=== PATIENT | female | born 1995 | race Caucasian/White ===

== ENCOUNTER 2018-05-18 18:39 | Emergency (ER) | payer OTHER ==
[2018-05-18 19:38] VITALS: BP 147/93; PULSE 100; TEMP 98; BMI 31.0
--- NOTE | 2018-05-18 19:38 | PDOC ---
Rapid Medical Evaluation Chief Complaint: Back Pain Medical Evaluation: Allergies Allergy/AdvReac Type Severity Reaction Status Date / Time No Known Allergies Allergy Verified 08/12/12 23:10 05/18/18 19:36 I have performed a brief in-person evaluation of this patient. The patient presents with a chief complaint of: back x 6 days , no fevers, no dysuria or bowel issue- states is left sided with radiation. Pertinent physical exam findings: pale, walks slowly, unable to bend due to pain I have ordered the following: UCG The patient will proceed to the ED for further evaluation. 05/18/18 19:37 Discharge Disposition - Diagnosis Back pain - Referrals - Patient Instructions - Post Discharge Activity
[2018-05-18] MEDS ORDERED: KETOROLAC TROMETHAMINE 30 MG/1 ML VIAL IM ONE (20:58)
--- NOTE | 2018-05-18 20:58 | PDOC ---
History of Present Illness - General Chief Complaint: Pain, Acute Stated Complaint: LT LEG PAIN Time Seen by Provider: 05/18/18 20:16 History Source: Patient - History of Present Illness Initial Comments: 05/18/18 21:03 23 year old obese female complaining of left Sided back pain radiating down to the left leg. Denies numbness or tingling to the lower extremity. Denies midline tenderness or pain, denies heavy lifting, injury or trauma to the area. PMHX; NIDDM Extremity Pain Location - Extremity Pain Location Extremity Pain Locations: left: leg Past History - Past Medical History Allergies/Adverse Reactions: Allergies Allergy/AdvReac Type Severity Reaction Status Date / Time No Known Allergies Allergy Verified 05/18/18 19:58 Home Medications: Ambulatory Orders Cyclobenzaprine HCl [Flexeril -] 10 mg PO TID PRN #21 tablet 05/18/18 Ibuprofen 600 mg PO QID PRN #20 tablet 05/18/18 metFORMIN HCL [Glucophage -] 05/18/18 COPD: No Diabetes: Yes - Immunization History Immunization Up to Date: Yes - Suicide/Smoking/Psychosocial Hx Smoking Status: No Smoking History: Never smoked Have you smoked in the past 12 months: No Number of Cigarettes Smoked Daily: 0 Information on smoking cessation initiated: No Review of Systems - Review of Systems Able to Perform ROS?: Yes Is the patient limited Irish proficient: No Constitutional: No: Symptoms Reported, See HPI, Chills, Diaphoresis, Fever, Loss of Appetite, Malaise, Night Sweats, Weakness, Weight Stable, Unintentional Wgt. Loss, Unexplained wgt Loss, Other HEENTM: No: Symptoms Reported, See HPI, Eye Pain, Blurred Vision, Tearing, Recent change in vision, Double Vision, Cataracts, Ear Pain, Ocular Prothesis, Ear Discharge, Nose Pain, Nose Congestion, Tinnitus, Nose Bleeding, Hearing Loss , Throat Pain, Throat Swelling, Mouth Pain, Dental Problems, Difficulty Swallowing, Mouth Swelling, Other Respiratory: No: Symptoms reported, See HPI, Cough, Orthopnea, Shortness of Breath, SOB with Exertion, SOB at Rest, Stridor, Wheezing, Productive cough, Hemoptysis, Other Cardiac (ROS): No: Symptoms Reported, See HPI, Chest Pain, Edema, Irregular Heart Rate, Lightheadedness, Palpitations, Syncope, Chest Tightness, Other Musculoskeletal: Yes: Back Pain Integumentary: No: Symptoms Reported, See HPI, Bruising, Change in Color, Change in Hair/Nails, Dryness, Erythema, Flushing, Lesions, Lumps, Pallor, Pruritus, Rash, Sweating, Other *Physical Exam - Vital Signs Last Vital Signs Temp Pulse Resp BP Pulse Ox 98.0 F 100 H 16 147/93 100 05/18/18 19:37 05/18/18 19:37 05/18/18 19:37 05/18/18 19:37 05/18/18 19:37 - Physical Exam General Appearance: Yes: Appropriately Dressed, Obese Respiratory/Chest: positive: Lungs Clear, Normal Breath Sounds Gastrointestinal/Abdominal: positive: Normal Bowel Sounds, Soft. negative: Tender Musculoskeletal: positive: Normal Inspection. negative: CVA Tenderness, Vertebral Tenderness (no midline tendenrness) Extremity: positive: Normal Inspection, Normal Range of Motion Neurologic: positive: Fully Oriented, Alert, Normal Mood/Affect Moderate Sedation - Procedure Monitoring Vital Signs: Procedure Monitoring Vital Signs Temperature 98.0 F 05/18/18 19:37 Pulse Rate 100 H 05/18/18 19:37 Respiratory Rate 16 05/18/18 19:37 Blood Pressure 147/93 05/18/18 19:37 O2 Sat by Pulse Oximetry (%) 100 05/18/18 19:37 ED Treatment Course - ADDITIONAL ORDERS Additional order review: Laboratory Results 05/18/18 20:14 Urine HCG, Qual Negative Progress Note - Progress Note Progress Note: A: left sided sciatica pain P: NSAids muscle relaxant outpatient ortho follow up Medical Decision Making - Medical Decision Making 05/18/18 21:24 BGM 300. patient reports no symptoms at this time. denies NVD . reports that her sugars have been high and her doctor is starting her on insulin. *DC/Admit/Observation/Transfer Diagnosis at time of Disposition: Back pain Qualifiers: Back pain location: low back pain Chronicity: acute Back pain laterality: left Sciatica presence: with sciatica Sciatica laterality: sciatica of left side Qualified Code(s): M54.42 - Lumbago with sciatica, left side - Discharge Dispostion Disposition: HOME Condition at time of disposition: Stable - Prescriptions Prescriptions: Cyclobenzaprine HCl [Flexeril -] 10 mg PO TID PRN #21 tablet PRN Reason: Muscle Spasms Ibuprofen 600 mg PO QID PRN #20 tablet PRN Reason: Back Pain - Referrals Referrals: Felipe Gonzalez DO [Staff Physician] - Call tomorrow Lynette Nam MD [Primary Care Provider] - Call tomorrow - Patient Instructions Printed Discharge Instructions: DI for Back Pain With Sciatica Additional Instructions: apply ice or heat to the area. follow up with the doctor as soon as possible. take flexeril as prescribed. this can make you sleepy take ibuprofen with food every 6 hours as needed for pain. - Post Discharge Activity Forms/Work/School Notes: Back to Work
[2018-05-18] MEDS ORDERED: diazePAM 5 MG TABLET PO ONE (21:11)
[2018-05-18] MEDS ORDERED: KETOROLAC TROMETHAMINE 30 MG/1 ML VIAL ONE (21:27)
[2018-05-18] MEDS ORDERED: diazePAM 5 MG TABLET ONE (21:27)
== END 2018-05-18 21:53 | disposition home or self-care (01) ==
LOC: JERFT 18:39
PROC: 3E0233Z Introduction of Anti-inflammatory into Muscle, Percutaneous Approach (ICD-10-PCS; principal; 2018-05-18)
DX: M54.42 Lumbago with sciatica, left side (principal); E11.9 Type 2 diabetes mellitus without complications; Z79.84 Long term (current) use of oral hypoglycemic drugs
CPT/HCPCS: 82962; 84703; 99281-25

== ENCOUNTER 2018-10-28 17:49 | Emergency (ER) | payer OTHER | END 2018-10-28 18:38 | disposition home or self-care (01) | LOC: JERFT 17:49 ==

== ENCOUNTER 2022-09-25 17:48 | Emergency (ER) | payer OTHER ==
[2022-09-25 17:55] VITALS: BP 166/74; PULSE 95; RESP 18; TEMP 98.7; BMI 29.5
[2022-09-25] MEDS ORDERED: IBUPROFEN 600 MG TABLET (FP) PO ONE ×2 (19:12→19:25)
== END 2022-09-25 20:03 | disposition home or self-care (01) ==
LOC: JERFT 17:48 → JER 17:48 → JERFT 20:03
DX: M25.531 Pain in right wrist (principal); M79.641 Pain in right hand; L53.9 Erythematous condition, unspecified; W20.8XXA Other cause of strike by thrown, projected or falling object, initial encounter; Y93.I9 Activity, other involving external motion; Y92.9 Unspecified place or not applicable
CPT/HCPCS: 73110-TC-RT-FY; 73130-TC-RT-FY; 99283-25

== ENCOUNTER 2022-11-05 19:01 | Emergency (ER) | payer OTHER ==
[2022-11-05 19:04] VITALS: BP 139/92; PULSE 90; RESP 18; TEMP 98.6; BMI 29.5
== END 2022-11-05 20:13 | disposition home or self-care (01) ==
LOC: JERFT 19:01
DX: R21 Rash and other nonspecific skin eruption (principal); R10.32 Left lower quadrant pain; W57.XXXA Bitten or stung by nonvenomous insect and other nonvenomous arthropods, initial encounter
CPT/HCPCS: 99283-25

== ENCOUNTER 2024-01-14 12:27 | Emergency (ER) | payer OTHER ==
[2024-01-14 12:38] VITALS: BP 151/88; PULSE 85; RESP 20; TEMP 98.7; BMI 28.8
== END 2024-01-14 15:27 | disposition home or self-care (01) ==
LOC: JERFT 12:27 → JER 12:27 → JERFT 15:27
DX: S83.91XA Sprain of unspecified site of right knee, initial encounter (principal); W01.0XXA Fall on same level from slipping, tripping and stumbling without subsequent striking against object, initial encounter
CPT/HCPCS: 73564-TC-RT-FY; 99283-25

== ENCOUNTER 2024-02-10 07:30 | Observation (INO) | payer OTHER ==
[2024-02-10 08:52] LABS: VENOUS O2 SATURATION 40.3 % (70-80); VENOUS PCO2 42.8 mmHg (38-52); VENOUS PH 7.358 (7.310-7.410)
[2024-02-10] MEDS: SODIUM CHLORIDE 1,000 ML IV STA (08:55)
[2024-02-10 08:57] LABS: HEMATOCRIT 43.1 % (32.4-45.2); HEMOGLOBIN 14.5 GM/dL (10.7-15.3); MCH 27.5 pg (25.7-33.7); MCHC 33.6 g/dl (32.0-36.0); MEAN CELL VOLUME 81.9 fl (80-96); MEAN PLT VOLUME 7.8 fl (7.5-11.1); PLATELET COUNT 260 10^3/uL (134-434); RBC 5.26 M/mm3 (3.60-5.2); WHITE BLOOD COUNT 11.9 K/mm3 (4.0-10.0)
[2024-02-10] MEDS ORDERED: ONDANSETRON 4 MG/2 ML VIAL ONE ×2 (09:15→13:10)
[2024-02-10] MEDS: ONDANSETRON 4 MG/2 ML VIAL IVPUSH ONE ×2 (09:19→13:16)
[2024-02-10 09:21] LABS: CHLORIDE 103 mmol/L (98-107); POTASSIUM 4.6 mmol/L (3.5-5.1); SODIUM 136 mmol/L (136-145)
[2024-02-10 09:24] LABS: ALBUMIN 3.1 g/dl (3.4-5.0); ANION GAP 9 mmol/L (4-13); BLOOD UREA NITROGEN 21.4 mg/dL (7-18); CO2 24 mmol/L (21-32)
[2024-02-10 09:25] LABS: PHOSPHOROUS 4.4 mg/dL (2.5-4.9)
[2024-02-10 09:27] LABS: CREATININE 0.8 mg/dL (0.55-1.3); GLUCOSE,RANDOM 443 mg/dL (74-106); SGOT/AST 15 U/L (15-37); SGPT/ALT 22 U/L (13-61)
[2024-02-10 09:28] LABS: TOT PROT 7.4 g/dl (6.4-8.2)
[2024-02-10 09:29] LABS: ALK PHOS 82 U/L (45-117); BILIRUBIN,TOTAL 0.7 mg/dL (0.2-1)
[2024-02-10 09:39] LABS: ANISOCYTOSIS 0; MACROCYTOSIS 0
[2024-02-10] MEDS ORDERED: INSULIN REGULAR HUMAN 100 UNITS/ML *VIAL ONE (10:30)
[2024-02-10] MEDS: INSULIN REGULAR HUMAN 100 UNITS/ML *VIAL IVPUSH ONE (10:36)
[2024-02-10] MEDS: SODIUM CHLORIDE 0.9% 500 ML INFUS.BAG IV ONE (13:16)
[2024-02-10 13:28] LABS: EPI CELLS 5 /uL (0-25.1); HYALINE CASTS 0 /uL (0-3.1); PH,URINE 5.5 (5.0-8.0); URINE APPEARANCE CLEAR; URINE BACTERIA 958 /uL (0-1359); URINE BILIRUBIN NEGATIVE (NEGATIVE); URINE COLOR YELLOW; URINE GLUCOSE (UA) 3+ (NEGATIVE); URINE KETONE 2+ (NEGATIVE); URINE LEUK ESTERASE NEGATIVE (NEGATIVE); URINE NITRITE NEGATIVE (NEGATIVE); URINE PROTEIN 3+ (NEGATIVE); URINE RBC 32 /uL (0-23.9); URINE UROBILINOGEN 0.2 mg/dL (0.2-1.0)
[2024-02-10 13:58] LABS: CHOLESTEROL 251 mg/dL (50-200)
[2024-02-10 13:59] LABS: LDL CHOLESTEROL (ONLY SJRH) 155 mg/dL (5-100)
[2024-02-10 14:01] LABS: HDL CHOLESTEROL 56 mg/dL (40-60)
[2024-02-10] MEDS: ACETAMINOPHEN 325 MG TABLET (FP) PO ONE (14:35)
[2024-02-10] MEDS: CEFTRIAXONE 1 G/50 ML PREMIX 50 ML IVPB SCH (14:35)
[2024-02-10] MEDS ORDERED: CEFTRIAXONE 1 G/50 ML PREMIX 50 ML IVPB ONE (14:48)
[2024-02-10] MEDS ORDERED: ACETAMINOPHEN 325 MG TABLET (FP) ONE (14:48)
[2024-02-10] MEDS: LACTATED RINGERS SOLUTION 1,000 ML/1,000 ML INFUS.BAG IV STA (15:31)
[2024-02-10 16:49] VITALS: BMI 29.8
[2024-02-10] MEDS: INSULIN ASPART SLIDING SCALE (NOVOLOG) 1 VIAL SQ SCH (17:17)
[2024-02-10] MEDS: LACTATED RINGERS SOLUTION 1,000 ML/1,000 ML INFUS.BAG IV SCH (17:18)
[2024-02-10] MEDS: INSULIN (NOVOLOG) ASPART 100 UNITS/ML 10ML VIAL SQ SCH (17:18)
[2024-02-10] MEDS: ONDANSETRON 4 MG/2 ML VIAL IVPUSH PRN (21:15)
[2024-02-10] MEDS: ATORVASTATIN CA 40 MG TABLET (FP) PO SCH (21:15)
[2024-02-10] MEDS: ACETAMINOPHEN 325 MG TABLET (FP) PO PRN (21:16)
[2024-02-10] MEDS: INSULIN (LEVEMIR) 100 UNITS/ML UNITS SQ SCH (21:17)
[2024-02-11 07:28] LABS: HEMATOCRIT 36.8 % (32.4-45.2); HEMOGLOBIN 12.3 GM/dL (10.7-15.3); MCH 27.6 pg (25.7-33.7); MCHC 33.4 g/dl (32.0-36.0); MEAN CELL VOLUME 82.7 fl (80-96); MEAN PLT VOLUME 8.1 fl (7.5-11.1); PLATELET COUNT 233 10^3/uL (134-434); RBC 4.45 M/mm3 (3.60-5.2); RDW 12.9 % (11.6-15.6); WHITE BLOOD COUNT 6.3 K/mm3 (4.0-10.0)
[2024-02-11 07:45] LABS: POTASSIUM 3.6 mmol/L (3.5-5.1)
[2024-02-11 07:46] LABS: POTASSIUM 3.6 mmol/L (3.5-5.1)
[2024-02-11 07:47] LABS: CALCIUM 7.9 mg/dL (8.5-10.1)
[2024-02-11 07:49] LABS: BLOOD UREA NITROGEN 13.8 mg/dL (7-18); BLOOD UREA NITROGEN 14.5 mg/dL (7-18); CALCIUM 8.1 mg/dL (8.5-10.1); MAGNESIUM 1.8 mg/dL (1.8-2.4)
[2024-02-11 07:51] LABS: CREATININE 0.5 mg/dL (0.55-1.3)
[2024-02-11 07:52] LABS: BILIRUBIN,TOTAL 0.4 mg/dL (0.2-1); CREATININE 0.6 mg/dL (0.55-1.3); TOT PROT 5.9 g/dl (6.4-8.2)
[2024-02-11 08:05] LABS: ALBUMIN 2.4 g/dl (3.4-5.0)
[2024-02-11] MEDS: SODIUM CHLORIDE 1,000 ML IV SCH (11:23)
[2024-02-11] MEDS: ENOXAPARIN NA (PORCINE) 40 MG/0.4 ML DISP.SYRIN SQ SCH ×2 (12:37→13:29)
[2024-02-11] MEDS: NAPH,MB-DB/K PH,MBDB POWDER PACKET PO SCH (13:29)
[2024-02-12 08:55] VITALS: BP 136/92; PULSE 89; RESP 18; TEMP 98.6
== END 2024-02-12 12:05 | disposition home or self-care (01) ==
LOC: JER 07:30 → JERBED 11:58 → J7W 16:23
PROVIDERS: ADMIT Student in an Organized Health Care Education/Training Program; ATTEND Internal Medicine
PROC: 3E03329 Introduction of Other Anti-infective into Peripheral Vein, Percutaneous Approach (ICD-10-PCS; principal; 2024-02-10)
PROC: 3E023GC Introduction of Other Therapeutic Substance into Muscle, Percutaneous Approach (ICD-10-PCS; 2024-02-10)
PROC: 3E023GC Introduction of Other Therapeutic Substance into Muscle, Percutaneous Approach (ICD-10-PCS; 2024-02-10)
PROC: 3E033VG Introduction of Insulin into Peripheral Vein, Percutaneous Approach (ICD-10-PCS; 2024-02-10)
PROC: 3E0337Z Introduction of Electrolytic and Water Balance Substance into Peripheral Vein, Percutaneous Approach (ICD-10-PCS; 2024-02-10)
PROC: 3E033GC Introduction of Other Therapeutic Substance into Peripheral Vein, Percutaneous Approach (ICD-10-PCS; 2024-02-10)
DX: E11.10 Type 2 diabetes mellitus with ketoacidosis without coma (principal); Z91.148 Patient's other noncompliance with medication regimen for other reason; D72.829 Elevated white blood cell count, unspecified; R07.9 Chest pain, unspecified
CPT/HCPCS: 0241U-QW; 36415; 71045-TC-FY; 80048; 80053; 80061; 81003; 82010; 82550; 82803; 82962; 83036; 83605; 83690; 83735; 84100; 84484; 84702; 84703; 85025; 85027; 87040; 87086; 93005; 93010; 96361; 96365; 96372; 96375; 96376; 99285-25; G0378

== ENCOUNTER 2024-06-07 11:24 | Emergency (ER) | payer OTHER ==
[2024-06-07 11:40] VITALS: BP 139/74; PULSE 82; RESP 20; TEMP 98.7; BMI 30.4
[2024-06-07] MEDS ORDERED: ACETAMINOPHEN 500 MG TABLET (FP) ONE (13:38)
[2024-06-07] MEDS: ACETAMINOPHEN 500 MG TABLET (FP) PO ONE (13:41)
== END 2024-06-07 13:42 | disposition home or self-care (01) ==
LOC: JER 11:24
DX: R51.9 Headache, unspecified (principal); H53.8 Other visual disturbances; R42 Dizziness and giddiness
CPT/HCPCS: 82962; 99283-25